=== PATIENT | female | born 1965 | race Caucasian/White ===

== ENCOUNTER → 2020-10-15 | Outpatient (CLI) | payer MEDICARE, OTHER ==
[~2020-10-15] MED LIST: ASPIRIN EC325 MG PO; CELEXA10 MG PO; CLARITIN10 M2 PO; COZAAR50 MG PO; ENDOCET 7.5-321 EACH PO; FERROUS SULFAT325 MG PO; HYDROXYZINE HCL25 MG PO; LOW DOSE ASPIRI81 MG PO; NAPROSYN500 MG PO; OMEPRAZOLE40 MG PO; TYLENOL 8 HOUR650 MG PO; VITAMIN D PO
[2020-10-15 14:22] LABS: HEMOGLOBIN 13.1 gm/dl (12.3-15.3); RED BLOOD COUNT 4.38 M/UL (4.00-5.10); WHITE BLOOD COUNT 5.6 K/UL (4.5-11.0)
[2020-10-15 14:37] LABS: BUN/CREATININE RATIO 34 (0-10)
== END ==
LOC: OPSV2 10-10 12:30 → EDSTATUS 12:30 → OPSV2 13:05
PROVIDERS: Orthopaedic Surgery
DX: Z01.812 Encounter for preprocedural laboratory examination (principal); Z01.810 Encounter for preprocedural cardiovascular examination; M17.12 Unilateral primary osteoarthritis, left knee; R94.31 Abnormal electrocardiogram [ECG] [EKG]
CPT/HCPCS: 36415; 80048; 85025; 87081; 93005

== ENCOUNTER → 2020-10-22 | Outpatient (CLI) | payer MEDICARE, OTHER ==
[2020-10-22 17:16] LABS: BUN/CREATININE RATIO 36 (0-10)
== END ==
LOC: LAB 13:19
PROVIDERS: Orthopaedic Surgery
DX: Z01.812 Encounter for preprocedural laboratory examination (principal)
CPT/HCPCS: 36415; 80048; 86850; 86900; 86901

== ENCOUNTER 2020-10-23 06:20 | Observation (INO) | payer MEDICARE, OTHER ==
[~2020-10-23] VITALS: Ht 160 cm; Wt 75.3 kg
[~2020-10-23 06:20] MED LIST changes: -ASPIRIN EC325 MG PO; -ENDOCET 7.5-321 EACH PO
[2020-10-23] MEDS ORDERED: ENDOCET 7.5-321 EACH PO (08:37)
[2020-10-23] MEDS ORDERED: ASPIRIN EC325 MG PO (08:38)
[2020-10-24 03:06] LABS: HEMOGLOBIN 9.6 gm/dl (12.3-15.3); RED BLOOD COUNT 3.19 M/UL (4.00-5.10); WHITE BLOOD COUNT 12.5 K/UL (4.5-11.0)
[2020-10-24 03:46] LABS: BUN/CREATININE RATIO 26 (0-10)
[2020-10-25 03:22] LABS: HEMOGLOBIN 9.7 gm/dl (12.3-15.3); RED BLOOD COUNT 3.21 M/UL (4.00-5.10); WHITE BLOOD COUNT 14.8 K/UL (4.5-11.0)
[2020-10-25 03:41] LABS: BUN/CREATININE RATIO 49 (0-10)
== END 2020-10-25 15:48 | disposition home health service (06) ==
LOC: OR 06:20 → EDSTATUS 11:45 → M/S 17:30 → OR 17:30 → M/S 10-24 15:12
PROVIDERS: ADMIT Orthopaedic Surgery
DX: M17.12 Unilateral primary osteoarthritis, left knee (principal); G89.18 Other acute postprocedural pain; I10 Essential (primary) hypertension; E78.5 Hyperlipidemia, unspecified; E87.6 Hypokalemia; E87.1 Hypo-osmolality and hyponatremia; R42 Dizziness and giddiness; K21.9 Gastro-esophageal reflux disease without esophagitis; Z79.82 Long term (current) use of aspirin; Z79.899 Other long term (current) drug therapy
CPT/HCPCS: 36415; 73560; 80048; 84132; 85027; 97116-GP-CQ; 97162; 97166; 97535; C1776; G0378; J0171; J0592; J0690; J1100; J2001; J2250; J2270; J2370; J2400; J2405; J2704; J2795; J3370; J7120